=== PATIENT | male | born 1955 | race Caucasian/White ===

== ENCOUNTER → 2017-10-12 | Outpatient (CLI) | payer OTHER ==
[~2017-10-12] MED LIST: ASPIRIN81 MG PO; CRESTOR10 MG PO; GABAPENTIN100 MG PO; LABETALOL HCL100 MG PO; PANTOPRAZOLE SO40 MG PO
--- NOTE | 2017-10-12 13:44 | Diagnostic Imaging Report ---
PROCEDURE: US THYROID COMPARISON: None. INDICATIONS:NODULE TECHNIQUE: Waters scale color Doppler ultrasound thyroid FINDINGS: Right: 2.4 x 1 x 1.6 cm Left: 3.6 x 1.4 x 1.4 cm Isthmus: 0.4 cm thickness Normal thyroid parenchyma without nodularity. Symmetric, normal appearing vasculature. CONCLUSION: Normal thyroid without nodularity or hypervascularity. Dictated by: Sonny Santoyo M.D. on 10/12/2017 at 13:47 Electronically approved by: Sonny Santoyo M.D. on 10/12/2017 at 13:47
== END ==
LOC: US 12:34
PROVIDERS: ATTEND Family Medicine
DX: E04.1 Nontoxic single thyroid nodule (principal)
CPT/HCPCS: 76536